=== PATIENT | female | born 1970 | race Caucasian/White ===

== ENCOUNTER 2017-11-29 10:26 | Emergency (ER) | payer OTHER ==
--- NOTE | 2017-11-29 11:04 | ED ---
General Adult HPI - General Chief complaint: Recheck/Abnormal Lab/Rx Stated complaint: Near Syncope Time Seen by Provider: 11/29/17 10:30 Source: patient, EMS, RN notes reviewed Mode of arrival: EMS Limitations: no limitations - History of Present Illness Initial comments: This is a 47-year-old female presents emergency department via EMS for not feeling well. Patient states that she had a sudden onset of overwhelming feeling that she was going to pass out and states that she became shaky, clammy and flushed feeling. Patient states that it resolved and she attempted to drive emergency Department but then she felt she was going to pass out again and called EMS at that time. As EMS picked her up she did complain of some chest heaviness states there is no chest pain. She states her symptoms have resolved. Patient states that she recently was started on Effexor for anxiety. Patient states that she has taken a few doses of it. Patient states she was started on this for her anxiety issues. Patient also states that she has an estradiol patch on. Patient denies any headache or focal weakness. She states that she feels tingly all over currently. He states his symptoms seem to wax and wane. She has no abdominal pain denies any leg pain, upper extremity pain. Patient has no prior cardiac history. She takes omeprazole for GERD. - Related Data Home Medications Medication Instructions Recorded Confirmed Estradiol [Estradiol 0.025 MG 0.025 mg TRANSDERM Q3D 11/29/17 11/29/17 Patch] Meclizine [Antivert] 12.5 mg PO DAILY PRN 11/29/17 11/29/17 Omeprazole 20 mg PO DAILY 11/29/17 11/29/17 Venlafaxine HCl [Effexor] 2 tab PO DAILY 11/29/17 11/29/17 Allergies Allergy/AdvReac Type Severity Reaction Status Date / Time No Known Allergies Allergy Verified 11/29/17 10:42 Review of Systems ROS Statement: Those systems with pertinent positive or pertinent negative responses have been documented in the HPI. ROS Other: All systems not noted in ROS Statement are negative. Past Medical History Past Medical History: GERD/Reflux Additional Past Medical History / Comment(s): vertigo History of Any Multi-Drug Resistant Organisms: None Reported Past Surgical History: Hernia Repair, Hysterectomy Past Psychological History: No Psychological Hx Reported Smoking Status: Current every day smoker Past Alcohol Use History: Occasional Past Drug Use History: None Reported General Exam Limitations: no limitations General appearance: alert, in no apparent distress ENT exam: Present: normal exam, normal oropharynx, mucous membranes moist Neck exam: Present: normal inspection, full ROM. Absent: tenderness, meningismus, lymphadenopathy Respiratory exam: Present: normal lung sounds bilaterally. Absent: respiratory distress, wheezes, rales, rhonchi, stridor Cardiovascular Exam: Present: regular rate, normal rhythm, normal heart sounds. Absent: systolic murmur, diastolic murmur, rubs, gallop, clicks GI/Abdominal exam: Present: soft, normal bowel sounds. Absent: distended, tenderness, guarding, rebound, rigid Neurological exam: Present: alert, oriented X3, CN II-XII intact, reflexes normal. Absent: motor sensory deficit Skin exam: Present: warm, dry, intact, normal color. Absent: rash Course Vital Signs 11/29/17 10:39 Temperature 98.1 F Pulse Rate 75 Respiratory 16 Rate Blood Pressure 117/63 O2 Sat by Pulse 100 Oximetry EKG Findings - EKG Comments: EKG Findings:: EKG performed at 11:02 sinus rhythm with sinus arrhythmia and a prolonged QT with a rate of 72 DC 138 QRS 86 QTC/QTC 452/494 Medical Decision Making - Medical Decision Making 47-year-old female sent in for symptoms of feeling she was passed out. Patient stated she had numbness and tingling diffusely and had flushed feeling. Patient had lab work, EKG and chest x-ray which all are all essentially normal. Patient does have a history anxiety and recently started on Effexor for anxiety. Patient symptoms may be caused by her medication at this time. Patient was slightly anxious earlier and had some chest heaviness or palpitations. Patient states that she's never had any chest pain. Her symptoms are more consistent with anxiety and medication reaction this time. Patient states that she feels improved and will be discharged to follow-up with primary care physician - Lab Data Result diagrams: 11/29/17 10:50 11/29/17 10:50 Lab Results 11/29/17 11/29/17 11/29/17 Range/Units 10:50 10:50 10:50 WBC 9.4 (3.8-10.6) k/uL RBC 4.53 (3.80-5.40) m/uL Hgb 13.4 (11.4-16.0) gm/dL Hct 41.2 (34.0-46.0) % MCV 90.8 (80.0-100.0) fL MCH 29.6 (25.0-35.0) pg MCHC 32.6 (31.0-37.0) g/dL RDW 12.9 (11.5-15.5) % Plt Count 269 (150-450) k/uL Neutrophils % 67 % Lymphocytes % 25 % Monocytes % 5 % Eosinophils % 1 % Basophils % 1 % Neutrophils # 6.3 (1.3-7.7) k/uL Lymphocytes # 2.3 (1.0-4.8) k/uL Monocytes # 0.5 (0-1.0) k/uL Eosinophils # 0.1 (0-0.7) k/uL Basophils # 0.1 (0-0.2) k/uL PT (9.0-12.0) sec INR (<1.2) APTT (22.0-30.0) sec D-Dimer (<0.60) mg/L FEU Sodium 142 (137-145) mmol/L Potassium 4.2 (3.5-5.1) mmol/L Chloride 107 (98-107) mmol/L Carbon Dioxide 25 (22-30) mmol/L Anion Gap 10 mmol/L BUN 15 (7-17) mg/dL Creatinine 0.79 (0.52-1.04) mg/dL Est GFR (CKD-EPI)AfAm >90 (>60 ml/min/1.73 sqM) Est GFR (CKD-EPI)NonAf 90 (>60 ml/min/1.73 sqM) Glucose 101 H (74-99) mg/dL Calcium 9.0 (8.4-10.2) mg/dL Magnesium 1.8 (1.6-2.3) mg/dL Total Bilirubin 0.7 (0.2-1.3) mg/dL AST 20 (14-36) U/L ALT 25 (9-52) U/L Alkaline Phosphatase 54 (38-126) U/L Total Creatine Kinase 80 (30-135) U/L CK-MB (CK-2) 0.3 (0.0-2.4) ng/mL CK-MB (CK-2) Rel Index 0.4 Troponin I <0.012 (0.000-0.034) ng/mL Total Protein 6.2 L (6.3-8.2) g/dL Albumin 3.6 (3.5-5.0) g/dL Lipase 83 (23-300) U/L Urine Color Urine Appearance (Clear) Urine pH (5.0-8.0) Ur Specific [place] (1.001-1.035) Urine Protein (Negative) Urine Glucose (UA) (Negative) Urine Ketones (Negative) Urine Blood (Negative) Urine Nitrite (Negative) Urine Bilirubin (Negative) Urine Urobilinogen (<2.0) mg/dL Ur Leukocyte Esterase (Negative) 11/29/17 11/29/17 Range/Units 10:50 10:50 WBC (3.8-10.6) k/uL RBC (3.80-5.40) m/uL Hgb (11.4-16.0) gm/dL Hct (34.0-46.0) % MCV (80.0-100.0) fL MCH (25.0-35.0) pg MCHC (31.0-37.0) g/dL RDW (11.5-15.5) % Plt Count (150-450) k/uL Neutrophils % % Lymphocytes % % Monocytes % % Eosinophils % % Basophils % % Neutrophils # (1.3-7.7) k/uL Lymphocytes # (1.0-4.8) k/uL Monocytes # (0-1.0) k/uL Eosinophils # (0-0.7) k/uL Basophils # (0-0.2) k/uL PT 10.2 (9.0-12.0) sec INR 1.0 (<1.2) APTT 24.8 (22.0-30.0) sec D-Dimer 0.22 (<0.60) mg/L FEU Sodium (137-145) mmol/L Potassium (3.5-5.1) mmol/L Chloride (98-107) mmol/L Carbon Dioxide (22-30) mmol/L Anion Gap mmol/L BUN (7-17) mg/dL Creatinine (0.52-1.04) mg/dL Est GFR (CKD-EPI)AfAm (>60 ml/min/1.73 sqM) Est GFR (CKD-EPI)NonAf (>60 ml/min/1.73 sqM) Glucose (74-99) mg/dL Calcium (8.4-10.2) mg/dL Magnesium (1.6-2.3) mg/dL Total Bilirubin (0.2-1.3) mg/dL AST (14-36) U/L ALT (9-52) U/L Alkaline Phosphatase (38-126) U/L Total Creatine Kinase (30-135) U/L CK-MB (CK-2) (0.0-2.4) ng/mL CK-MB (CK-2) Rel Index Troponin I (0.000-0.034) ng/mL Total Protein (6.3-8.2) g/dL Albumin (3.5-5.0) g/dL Lipase (23-300) U/L Urine Color Colorless Urine Appearance Clear (Clear) Urine pH 7.0 (5.0-8.0) Ur Specific [place] 1.002 (1.001-1.035) Urine Protein Negative (Negative) Urine Glucose (UA) Negative (Negative) Urine Ketones Negative (Negative) Urine Blood Negative (Negative) Urine Nitrite Negative (Negative) Urine Bilirubin Negative (Negative) Urine Urobilinogen <2.0 (<2.0) mg/dL Ur Leukocyte Esterase Negative (Negative) Disposition Clinical Impression: Intermittent lightheadedness, Medication reaction Disposition: HOME SELF-CARE Condition: Stable Instructions: Lightheadedness (ED) Additional Instructions: Please return to the Emergency Department if symptoms worsen or any other concerns. Is patient prescribed a controlled substance at d/c from ED?: No Referrals: Nonstaff,Physician [Primary Care Provider] - 1-2 days Time of Disposition: 12:52
[2017-11-29 11:12] LABS: Appearance,Urine Clear (Clear); Basophils # (A) 0.1 k/uL (0-0.2); Basophils % (A) 1 %; Bilirubin,Urine Negative (Negative); Blood,Urine Negative (Negative); Color,Urine Colorless; Eosinophils # (A) 0.1 k/uL (0-0.7); Eosinophils % (A) 1 %; Glucose,Urine (UA) Negative (Negative); HCT 41.2 % (34.0-46.0); HGB 13.4 gm/dL (11.4-16.0); Ketones,Urine Negative (Negative); Leukocyte Esterase,Urine Negative (Negative); Lymphocytes # (A) 2.3 k/uL (1.0-4.8); Lymphocytes % (A) 25 %; MCH 29.6 pg (25.0-35.0); MCHC 32.6 g/dL (31.0-37.0); MCV 90.8 fL (80.0-100.0); Mean Platelet Volume 7.3; Monocytes # (A) 0.5 k/uL (0-1.0); Monocytes % (A) 5 %; Neutrophils # (A) 6.3 k/uL (1.3-7.7); Neutrophils % (A) 67 %; Nitrite,Urine Negative (Negative); Platelet Count 269 k/uL (150-450); Protein,Urine Negative (Negative); RBC 4.53 m/uL (3.80-5.40); RDW 12.9 % (11.5-15.5); Specific Gravity,Urine 1.002 (1.001-1.035); Urobilinogen,Urine <2.0 mg/dL (<2.0); WBC 9.4 k/uL (3.8-10.6)
--- NOTE | 2017-11-29 11:20 | XR ---
EXAMINATION TYPE: XR chest 2V DATE OF EXAM: 11/29/2017 HISTORY: Chest Pain. REFERENCE: NONE. FINDINGS: The lungs are overinflated. The lungs are clear. Pleural spaces are clear. The heart is not enlarged. IMPRESSION: PLEASE CORRELATE FOR COPD.
[2017-11-29 11:24] LABS: ALT 25 U/L (9-52); AST 20 U/L (14-36); Albumin 3.6 g/dL (3.5-5.0); Alkaline Phosphatase 54 U/L (38-126); Anion Gap 10 mmol/L; Blood Urea Nitrogen 15 mg/dL (7-17); Carbon Dioxide 25 mmol/L (22-30); Chloride 107 mmol/L (98-107); Glucose 101 mg/dL (74-99); Lipase 83 U/L (23-300); Magnesium 1.8 mg/dL (1.6-2.3); Potassium 4.2 mmol/L (3.5-5.1); Sodium 142 mmol/L (137-145); Total Bilirubin 0.7 mg/dL (0.2-1.3); Total Protein 6.2 g/dL (6.3-8.2)
[2017-11-29 11:26] LABS: D-Dimer 0.22 mg/L FEU (<0.60); Partial Thromboplastin Time 24.8 sec (22.0-30.0); Prothrombin Time 10.2 sec (9.0-12.0)
[2017-11-29 11:33] LABS: Creatine Kinase 80 U/L (30-135)
[2017-11-29 11:46] LABS: Creatine Kinase MB 0.3 ng/mL (0.0-2.4); Troponin I <0.012 ng/mL (0.000-0.034)
[2017-11-29 12:58] VITALS: BP 120/67; PULSE 71; RESP 20; TEMP 97.2
== END 2017-11-29 12:58 | disposition home or self-care (01) ==
LOC: EC 10:26
DX: R42 Dizziness and giddiness (principal); R20.0 Anesthesia of skin; R20.2 Paresthesia of skin; T43.215A Adverse effect of selective serotonin and norepinephrine reuptake inhibitors, initial encounter; K21.9 Gastro-esophageal reflux disease without esophagitis; F41.9 Anxiety disorder, unspecified; F17.200 Nicotine dependence, unspecified, uncomplicated; Z90.710 Acquired absence of both cervix and uterus; Z98.890 Other specified postprocedural states; Z79.899 Other long term (current) drug therapy
CPT/HCPCS: 36415; 71046; 80053; 81003; 82550; 82553; 83690; 83735; 84484; 85025; 85379; 85610; 85730; 93005; 99285

== ENCOUNTER 2017-12-01 09:46 | Emergency (ER) | payer OTHER ==
[2017-12-01 11:01] LABS: Anion Gap 10 mmol/L; Basophils # (A) 0.1 k/uL (0-0.2); Basophils % (A) 1 %; Blood Urea Nitrogen 11 mg/dL (7-17); Calcium 9.2 mg/dL (8.4-10.2); Carbon Dioxide 25 mmol/L (22-30); Chloride 108 mmol/L (98-107); Eosinophils % (A) 0 %; Glucose 88 mg/dL (74-99); HCT 41.3 % (34.0-46.0); HGB 13.8 gm/dL (11.4-16.0); Lymphocytes # (A) 1.3 k/uL (1.0-4.8); Lymphocytes % (A) 14 %; MCHC 33.4 g/dL (31.0-37.0); MCV 89.7 fL (80.0-100.0); Mean Platelet Volume 7.2; Monocytes # (A) 0.4 k/uL (0-1.0); Monocytes % (A) 5 %; Neutrophils # (A) 7.3 k/uL (1.3-7.7); Neutrophils % (A) 80 %; Platelet Count 247 k/uL (150-450); Potassium 4.1 mmol/L (3.5-5.1); RBC 4.61 m/uL (3.80-5.40); RDW 12.8 % (11.5-15.5); Sodium 143 mmol/L (137-145); WBC 9.1 k/uL (3.8-10.6)
--- NOTE | 2017-12-01 11:31 | ED ---
General Adult HPI - General Chief complaint: Recheck/Abnormal Lab/Rx Stated complaint: Dizziness Time Seen by Provider: 12/01/17 09:57 Source: patient Mode of arrival: ambulatory Limitations: no limitations - History of Present Illness Initial comments: This is a 47-year-old female with past medical history of anxiety and GERD who presents today for chief complaint of fatigue. She was recently seen emergency Department on November 29 for similar complaints and possible reaction to new medication to effexor. comprehensive of workup was done at that time, which returned within normal limits. Patient has not taken Effexor since ThursdayNovember 28. This morning she stated she woke up very fatigued and as though her legs and arms were restless. She called her PCP who stated that the pt should not have effexor in her system and it should not be causing her fatigue. Pt did admit to drinking a coffee on an empty stomach. Pt was concerned and presented to the emergency department for fatigue and restless feeling in arms and leg bilaterally. Upon presention pt VS WNL.Patient denies any recent fever, chills, shortness of breath, chest pain, back pain, abdominal pain, nausea or vomiting, numbness or tingling, dysuria or hematuria, constipation or diarrhea, headaches or visual changes, or any other complaints. Physical examination WNL, no evidence of neurological deficits, or cardiopulmary processes. CBC, BMP, EKG and orthostatic BP were obtained which returned within normal limits. Upon re- evaluation of the patient she stated that she was feeling better after receiving a warm blanket. I was discussing diet, exercise habits with the patient and her mother, of which during conversation her mother mentioned that she had issues with fatigue and mentinoed she previously received B12 shots. Pt requested a B12 shot and stated she feels stable/comfortable with discharge. - Related Data Home Medications Medication Instructions Recorded Confirmed Estradiol [Estradiol 0.025 MG 0.025 mg TRANSDERM MOSA 11/29/17 12/01/17 Patch] Omeprazole 20 mg PO DAILY 11/29/17 12/01/17 Previous Rx's Medication Instructions Recorded Multivitamin [Multivitamins Adult 1 each PO DAILY 30 Days #30 tablet 12/01/17 Gummies] Allergies Allergy/AdvReac Type Severity Reaction Status Date / Time No Known Allergies Allergy Verified 12/01/17 10:01 Review of Systems ROS Statement: Those systems with pertinent positive or pertinent negative responses have been documented in the HPI. ROS Other: All systems not noted in ROS Statement are negative. Past Medical History Past Medical History: GERD/Reflux Additional Past Medical History / Comment(s): vertigo History of Any Multi-Drug Resistant Organisms: None Reported Past Surgical History: Hernia Repair, Hysterectomy Past Psychological History: No Psychological Hx Reported Smoking Status: Current every day smoker Past Alcohol Use History: Occasional Past Drug Use History: None Reported General Exam Limitations: no limitations Course Vital Signs 12/01/17 12/01/17 12/01/17 09:50 10:30 11:31 Temperature 98.3 F 98.6 F Pulse Rate 73 60 Pulse Rate [ 64 Sitting] Pulse Rate [ 73 Standing] Pulse Rate [ 59 L Supine] Respiratory 20 18 Rate Blood Pressure 135/80 106/59 Blood Pressure 117/67 [Sitting] Blood Pressure 112/81 [Standing] Blood Pressure 129/67 [Supine] O2 Sat by Pulse 100 99 Oximetry EKG Findings - EKG Comments: EKG Findings:: Sinus rhythm with short MI, 65 bpm. MI-106 ms. QRS- 84 ms. QT/ QTc 444/461 ms. P-R-T axes 72 86 61. Normal EKG-no evidence of delta wave, ST or T wave changes Medical Decision Making - Medical Decision Making This is a 47-year-old female with past medical history of anxiety and GERD who presents today for chief complaint of fatigue. She was recently seen emergency Department on November 29 for similar complaints and possible reaction to new medication to effexor. comprehensive of workup was done at that time, which returned within normal limits. Patient has not taken Effexor since ThursdayNovember 28. This morning she stated she woke up very fatigued and as though her legs and arms were restless. She called her PCP who stated that the pt should not have effexor in her system and it should not be causing her fatigue. Pt did admit to drinking a coffee on an empty stomach. Pt was concerned and presented to the emergency department for fatigue and restless feeling in arms and leg bilaterally. Upon presention pt VS WNL.Patient denies any recent fever, chills, shortness of breath, chest pain, back pain, abdominal pain, nausea or vomiting, numbness or tingling, dysuria or hematuria, constipation or diarrhea, headaches or visual changes, or any other complaints. Physical examination WNL, no evidence of neurological deficits, or cardiopulmary processes. CBC, BMP, EKG and orthostatic BP were obtained which returned within normal limits. Upon re- evaluation of the patient she stated that she was feeling better after receiving a warm blanket. I was discussing diet, exercise habits with the patient and her mother, of which during conversation her mother mentioned that she had issues with fatigue and mentinoed she previously received B12 shots. Pt requested a B12 shot and stated she feels stable/comfortable with discharge.The case was discussed in detail with Dr. Leal who feels comfortable with discharging patient with PCP f/u for B12 IM injection and further evaluation. Plan discussed with Pt who agrees and is happy with this. Pt ws instructed to return to the ER for changing or worsening symptoms. Pt repeat VS stable pt was discharged with rx for multivitamin in stable condition. - Lab Data Result diagrams: 12/01/17 10:36 12/01/17 10:36 Lab Results 12/01/17 12/01/17 Range/Units 10:36 10:36 WBC 9.1 (3.8-10.6) k/uL RBC 4.61 (3.80-5.40) m/uL Hgb 13.8 (11.4-16.0) gm/dL Hct 41.3 (34.0-46.0) % MCV 89.7 (80.0-100.0) fL MCH 30.0 (25.0-35.0) pg MCHC 33.4 (31.0-37.0) g/dL RDW 12.8 (11.5-15.5) % Plt Count 247 (150-450) k/uL Neutrophils % 80 % Lymphocytes % 14 % Monocytes % 5 % Eosinophils % 0 % Basophils % 1 % Neutrophils # 7.3 (1.3-7.7) k/uL Lymphocytes # 1.3 (1.0-4.8) k/uL Monocytes # 0.4 (0-1.0) k/uL Eosinophils # 0.0 (0-0.7) k/uL Basophils # 0.1 (0-0.2) k/uL Sodium 143 (137-145) mmol/L Potassium 4.1 (3.5-5.1) mmol/L Chloride 108 H (98-107) mmol/L Carbon Dioxide 25 (22-30) mmol/L Anion Gap 10 mmol/L BUN 11 (7-17) mg/dL Creatinine 0.84 (0.52-1.04) mg/dL Est GFR (CKD-EPI)AfAm >90 (>60 ml/min/1.73 sqM) Est GFR (CKD-EPI)NonAf 82 (>60 ml/min/1.73 sqM) Glucose 88 (74-99) mg/dL Calcium 9.2 (8.4-10.2) mg/dL Disposition Clinical Impression: Fatigue Disposition: HOME SELF-CARE Condition: Good Instructions: Chronic Fatigue Syndrome (ED), Fatigue (ED) Additional Instructions: Please take multivitamin as discussed. Please follow-up with family doctor in the next 2 days. Please return to emergency room if the symptoms increase or worsen or for any other concerns. Prescriptions: Multivitamin [Multivitamins Adult Gummies] 1 each PO DAILY 30 Days #30 tablet Is patient prescribed a controlled substance at d/c from ED?: No Referrals: Nonstaff,Physician [Primary Care Provider] - 1-2 days Time of Disposition: 11:36
[2017-12-01 11:33] VITALS: BP 106/59; PULSE 60; RESP 18; TEMP 98.6
== END 2017-12-01 11:46 | disposition home or self-care (01) ==
LOC: EC 09:46
DX: R53.83 Other fatigue (principal); R29.898 Other symptoms and signs involving the musculoskeletal system; K21.9 Gastro-esophageal reflux disease without esophagitis; F17.200 Nicotine dependence, unspecified, uncomplicated; Z79.899 Other long term (current) drug therapy
CPT/HCPCS: 36415; 80048; 85025; 93005; 99284

== ENCOUNTER → 2018-03-09 | Outpatient (CLI) | payer OTHER | END | disposition home or self-care (01) | LOC: MNTWWP 08:43 | PROVIDERS: ATTEND Physician Assistant | DX: E16.2 Hypoglycemia, unspecified (principal) | CPT/HCPCS: 97803 ==

== ENCOUNTER 2018-07-04 14:17 | Emergency (ER) | payer BC, OTHER ==
[2018-07-04 14:40] VITALS: TEMP 98.1
[2018-07-04] MEDS ORDERED: diphenhydrAMINE 50 MG/ML 1 ML VIAL IVP STA (15:11)
[2018-07-04] MEDS ORDERED: SODIUM CHLORIDE 0.9% 1,000 ML IV STA (15:11)
[2018-07-04] MEDS ORDERED: MECLIZINE 12.5 MG TAB PO STA ×2 (15:11→17:14)
[2018-07-04] MEDS ORDERED: KETOROLAC 30 MG/ML 1 ML VIAL IVP STA (15:12)
[2018-07-04] MEDS ORDERED: ONDANSETRON 4 MG/2 ML VIAL IVP STA (15:12)
--- NOTE | 2018-07-04 15:13 | ED ---
Dizziness HPI - General Chief Complaint: Dizziness Stated Complaint: VERTIGO Time Seen by Provider: 07/04/18 14:44 Source: patient, EMS, RN notes reviewed, old records reviewed Mode of arrival: EMS Limitations: no limitations - History of Present Illness Initial Comments: 47-year-old female presents return today for exacerbation of vertigo. Patient reports that a history of vertigo, life. Patient states that she normally can manage this with Antivert. Patient states that she was vomiting so much today she could not hold down her Antivert. Patient states that she attempted to come to the hospital and a car but the movement was too much for her. Patient states that she has followed with ENT as in the past. - Related Data Home Medications Medication Instructions Recorded Confirmed Estradiol [Estradiol 0.025 MG 0.025 mg TRANSDERM MOSA 11/29/17 07/04/18 Patch] Omeprazole 20 mg PO DAILY 11/29/17 07/04/18 ALPRAZolam [Xanax] 0.25 mg PO BID PRN 07/04/18 07/04/18 Citalopram Hydrobromide [CeleXA] 20 mg PO DAILY 07/04/18 07/04/18 Meclizine [Antivert] 25 mg PO DAILY PRN 07/04/18 07/04/18 Previous Rx's Medication Instructions Recorded Amoxic-Pot Clav 875-125Mg 1 tab PO Q12HR #20 tablet 07/04/18 [Augmentin 875-125] Meclizine [Antivert] 25 mg PO QID #20 tab 07/04/18 Ondansetron [Zofran] 4 mg PO Q8HR PRN #8 tab 07/04/18 Allergies Allergy/AdvReac Type Severity Reaction Status Date / Time adhesive tape Allergy Itching Verified 07/04/18 15:04 venlafaxine Allergy Unknown Verified 07/04/18 15:04 Review of Systems ROS Statement: Those systems with pertinent positive or pertinent negative responses have been documented in the HPI. ROS Other: All systems not noted in ROS Statement are negative. Past Medical History Past Medical History: GERD/Reflux Additional Past Medical History / Comment(s): vertigo, non-diabetic hypoglycemia History of Any Multi-Drug Resistant Organisms: None Reported Past Surgical History: Hernia Repair, Hysterectomy Past Psychological History: Anxiety Smoking Status: Current every day smoker Past Alcohol Use History: Rare Past Drug Use History: None Reported General Exam - General Exam Comments Initial Comments: Pleasant 39-year-old female. Alert and oriented 3. No significant distress. Limitations: no limitations General appearance: alert, in no apparent distress Head exam: Present: atraumatic, normocephalic, normal inspection Eye exam: Present: normal appearance, PERRL, EOMI, nystagmus (Nystagmus on right -sided gaze). Absent: scleral icterus, conjunctival injection, periorbital swelling ENT exam: Present: normal exam, normal oropharynx. Absent: TM's normal bilaterally ( is erythematous and bulging right TM.) Neck exam: Present: normal inspection. Absent: tenderness, meningismus, lymphadenopathy Respiratory exam: Present: normal lung sounds bilaterally. Absent: respiratory distress, wheezes, rales, rhonchi, stridor Cardiovascular Exam: Present: regular rate, normal rhythm, normal heart sounds. Absent: systolic murmur, diastolic murmur, rubs, gallop, clicks GI/Abdominal exam: Present: soft, normal bowel sounds. Absent: distended, tenderness, guarding, rebound, rigid Extremities exam: Present: normal inspection, full ROM, normal capillary refill. Absent: tenderness, pedal edema, joint swelling, calf tenderness Back exam: Present: normal inspection Neurological exam: Present: alert, oriented X3, CN II-XII intact Psychiatric exam: Present: normal affect, normal mood Skin exam: Present: warm, dry, intact, normal color. Absent: rash Course Vital Signs 07/04/18 07/04/18 07/04/18 14:28 16:00 16:49 Temperature 98.1 F Pulse Rate 60 62 69 Respiratory 16 14 15 Rate Blood Pressure 108/63 98/60 101/59 O2 Sat by Pulse 100 100 100 Oximetry EKG Findings - EKG Comments: EKG Findings:: EKG shows sinus rhythm with short [place]. Other is certainly daily. Ventricular 60 bpm. Pulse 108. QRS duration 90 ms. QRS QT QTc is 472 ms. Medical Decision Making - Medical Decision Making Patient is a 39-year-old female who presents today with nausea vomiting and intractable vertigo. Patient does have some evidence of right-sided horizontal nystagmus. She has initial difficulty turning her head. Patient was given IV fluids and Zofran and Toradol for neck pain, as well as Antivert. She tolerated those well. After Patient was reevaluated and lab work obtained she received fluid she was feeling somewhat better. She states he has some dizziness. She does have some evidence of effusion within the right TM. I discussed using a decongestant medications and with the Patient on antibiotic. Discussed following up with ENT. Discharge and Patient was antibiotic and Antivert prescription. - Lab Data Result diagrams: 07/04/18 15:33 07/04/18 15:33 Lab Results 07/04/18 07/04/18 Range/Units 15:33 15:33 WBC 13.8 H (3.8-10.6) k/uL RBC 4.36 (3.80-5.40) m/uL Hgb 12.8 (11.4-16.0) gm/dL Hct 40.1 (34.0-46.0) % MCV 92.1 (80.0-100.0) fL MCH 29.4 (25.0-35.0) pg MCHC 31.9 (31.0-37.0) g/dL RDW 13.0 (11.5-15.5) % Plt Count 267 (150-450) k/uL Neutrophils % 86 % Lymphocytes % 9 % Monocytes % 3 % Eosinophils % 1 % Basophils % 0 % Neutrophils # 11.9 H (1.3-7.7) k/uL Lymphocytes # 1.2 (1.0-4.8) k/uL Monocytes # 0.5 (0-1.0) k/uL Eosinophils # 0.1 (0-0.7) k/uL Basophils # 0.1 (0-0.2) k/uL Sodium 140 (137-145) mmol/L Potassium 4.3 (3.5-5.1) mmol/L Chloride 112 H (98-107) mmol/L Carbon Dioxide 25 (22-30) mmol/L Anion Gap 3 mmol/L BUN 16 (7-17) mg/dL Creatinine 0.73 (0.52-1.04) mg/dL Est GFR (CKD-EPI)AfAm >90 (>60 ml/min/1.73 sqM) Est GFR (CKD-EPI)NonAf >90 (>60 ml/min/1.73 sqM) Glucose 89 (74-99) mg/dL Calcium 8.6 (8.4-10.2) mg/dL Disposition Clinical Impression: Acute effusion of right ear, Vertigo Disposition: HOME SELF-CARE Condition: Good Instructions (If sedation given, give patient instructions): Vertigo (ED) Additional Instructions: Patient has take medications as prescribed. Follow-up with primary care physician. Return to emergency department if any alarming signs or symptoms occur. Prescriptions: Amoxic-Pot Clav 875-125Mg [Augmentin 875-125] 1 tab PO Q12HR #20 tablet Meclizine [Antivert] 25 mg PO QID #20 tab Ondansetron [Zofran] 4 mg PO Q8HR PRN #8 tab PRN Reason: Nausea And Vomiting Is patient prescribed a controlled substance at d/c from ED?: No Referrals: Romeo Espinoza MD [Primary Care Provider] - 1-2 days Time of Disposition: 17:43
[2018-07-04 16:09] LABS: Basophils # (A) 0.1 k/uL (0-0.2); Basophils % (A) 0 %; Eosinophils # (A) 0.1 k/uL (0-0.7); Eosinophils % (A) 1 %; HCT 40.1 % (34.0-46.0); HGB 12.8 gm/dL (11.4-16.0); Lymphocytes # (A) 1.2 k/uL (1.0-4.8); Lymphocytes % (A) 9 %; MCH 29.4 pg (25.0-35.0); MCHC 31.9 g/dL (31.0-37.0); MCV 92.1 fL (80.0-100.0); Mean Platelet Volume 7.7; Monocytes # (A) 0.5 k/uL (0-1.0); Monocytes % (A) 3 %; Neutrophils # (A) 11.9 k/uL (1.3-7.7); Neutrophils % (A) 86 %; Platelet Count 267 k/uL (150-450); RBC 4.36 m/uL (3.80-5.40); WBC 13.8 k/uL (3.8-10.6)
[2018-07-04 16:15] LABS: Anion Gap 3 mmol/L; Blood Urea Nitrogen 16 mg/dL (7-17); Calcium 8.6 mg/dL (8.4-10.2); Carbon Dioxide 25 mmol/L (22-30); Chloride 112 mmol/L (98-107); Glucose 89 mg/dL (74-99); Potassium 4.3 mmol/L (3.5-5.1); Sodium 140 mmol/L (137-145)
[2018-07-04 16:50] VITALS: RESP 15
[2018-07-04] MEDS ORDERED: METOCLOPRAMIDE 5 MG/ML 2 ML VIAL IVP STA (17:14)
[2018-07-04] MEDS ORDERED: AMOXIC-POT CLAV 875MG STARTER 2 EACH TABLET PO STA (17:55)
[2018-07-04] MEDS ORDERED: ONDANSETRON 4 MG ODT STARTER PACK 2 TAB BTL PO STA (17:55)
[2018-07-04 18:08] VITALS: BP 111/55; PULSE 66
== END 2018-07-04 18:07 | disposition home or self-care (01) ==
LOC: EC 14:17
DX: R42 Dizziness and giddiness (principal); H73.891 Other specified disorders of tympanic membrane, right ear; K21.9 Gastro-esophageal reflux disease without esophagitis; F41.9 Anxiety disorder, unspecified; Z79.3 Long term (current) use of hormonal contraceptives; Z79.899 Other long term (current) drug therapy; Z88.8 Allergy status to other drugs, medicaments and biological substances; Z91.048 Other nonmedicinal substance allergy status
CPT/HCPCS: 36415; 93005; 80048; 85025; 99285; 96374; 96375 ×3; 96361; J1200; J2765; J2405; J1885; S0119

== ENCOUNTER → 2020-03-17 | Outpatient (CLI) | payer BC ==
--- NOTE | 2020-03-17 17:25 | MR ---
EXAMINATION TYPE: MR iac wo/w con DATE OF EXAM: 03/17/2020 COMPARISON: None HISTORY: Vertigo, headaches CONTRAST: Standard multiplanar, multisequence MRI departmental protocol utilizing 7.5 mL intravenous Gadavist g adolinium contrast. Ventricles have normal size. There is no mass effect nor midline shift. There is no sign of intracran ial hemorrhage. Calvarium is intact. There is no evidence of cerebral edema. The diffusion images show no evidence of cortical infarct. Brainstem is intact. The acoustic nerve an d vestibular nerve appear normal. There is no evidence of cerebellopontine angle mass. Internal audit ory canals appear normal. Cerebellum appears normal. There is normal signal pattern of the temporal b ones. There is no evidence of mastoiditis. There is 1.5 cm mucous retention cyst in the right maxilla ry sinus. There is no evidence of orbital mass. Corpus callosum appears normal. Sella turcica is norm al. There is a 5 mm focus of increased signal in the white matter right frontal lobe on the FLAIR and T2 images. IMPRESSION: No evidence of posterior fossa abnormality. Single focus of increased signal in the white matter right frontal lobe of uncertain significance.
== END | disposition home or self-care (01) ==
LOC: RADMRIMAIN 09:28
PROVIDERS: ATTEND Otolaryngology
DX: R42 Dizziness and giddiness (principal)
CPT/HCPCS: 70553; A9585

== ENCOUNTER 2022-05-15 08:45 | Emergency (ER) | payer BC ==
[2022-05-15] MEDS ORDERED: SODIUM CHLORIDE 0.9% 500 ML 500 ML IV STA (09:03)
--- NOTE | 2022-05-15 09:06 | ED ---
General Adult HPI - General Chief complaint: Weakness Stated complaint: Weakness Time Seen by Provider: 05/15/22 08:55 Source: patient, RN notes reviewed Mode of arrival: ambulatory Limitations: no limitations - History of Present Illness Initial comments: Patient is a pleasant 51-year-old female patient emergency department not feeling well. Patient has been sick for over a week now. Patient started on antibiotics and steroids 4 days ago. Patient has had congestion and cough. No fevers. Today driving to see her neurologist, patient felt fatigued and shaky. Patient is also had some mild dyspnea. Symptoms have improved however to continue some. No leg pain or leg swelling. - Related Data Home Medications Medication Instructions Recorded Confirmed Omeprazole 20 mg PO DAILY 11/29/17 05/15/22 Citalopram Hydrobromide [CeleXA] 20 mg PO DAILY 07/04/18 05/15/22 Azithromycin [Zithromax Z Pack] See Taper PO DIRECTED 05/15/22 05/15/22 Galcanezumab-Gnlm [Emgality 120 mg SQ QMONTHLY 05/15/22 05/15/22 Syringe] Meloxicam [Mobic] 15 mg PO DAILY 05/15/22 05/15/22 Propranolol [Inderal] 20 mg PO BID 05/15/22 05/15/22 Vitamin B Complex 1 cap PO DAILY 05/15/22 05/15/22 estradioL [Estrace] 1 mg PO HS 05/15/22 05/15/22 methylPREDNISolone Dose Pack See Taper PO DIRECTED 05/15/22 05/15/22 [Medrol Dose Pack] Allergies Allergy/AdvReac Type Severity Reaction Status Date / Time adhesive tape Allergy Itching Verified 05/15/22 09:52 venlafaxine Allergy Unknown Verified 05/15/22 09:52 yellow dye Allergy Unknown Verified 05/15/22 09:52 Review of Systems ROS Statement: Those systems with pertinent positive or pertinent negative responses have been documented in the HPI. ROS Other: All systems not noted in ROS Statement are negative. Constitutional: Denies: fever Eyes: Denies: eye pain ENT: Reports: congestion. Denies: ear pain Respiratory: Reports: as per HPI, cough Cardiovascular: Denies: chest pain Endocrine: Reports: fatigue Gastrointestinal: Denies: abdominal pain Genitourinary: Denies: dysuria Musculoskeletal: Denies: back pain Skin: Denies: rash Neurological: Denies: headache Past Medical History Past Medical History: GERD/Reflux Additional Past Medical History / Comment(s): vertigo, non-diabetic hypoglycemia History of Any Multi-Drug Resistant Organisms: None Reported Past Surgical History: Hernia Repair, Hysterectomy Past Psychological History: Anxiety Past Alcohol Use History: Rare Past Drug Use History: None Reported General Exam Limitations: no limitations General appearance: alert, in no apparent distress Head exam: Present: normocephalic Eye exam: Present: normal appearance Neck exam: Present: normal inspection Respiratory exam: Present: normal lung sounds bilaterally Cardiovascular Exam: Present: regular rate, normal rhythm GI/Abdominal exam: Present: soft. Absent: tenderness Extremities exam: Present: normal inspection. Absent: pedal edema, calf tenderness Neurological exam: Present: alert. Absent: motor sensory deficit Psychiatric exam: Present: normal affect, normal mood Skin exam: Present: normal color Course Vital Signs 05/15/22 05/15/22 08:46 10:39 Temperature 97.2 F L Pulse Rate 62 55 L Respiratory 16 18 Rate Blood Pressure 148/77 141/75 O2 Sat by Pulse 99 Oximetry EKG Findings - EKG Results: EKG: interpreted by ERMD, sinus rhythm, normal axis, normal QRS, normal ST/T EKG shows: bradycardia Medical Decision Making - Medical Decision Making Patient reevaluated and feeling better. Patient resting complain bed. Patient and family updated on results and need for follow-up. Patient questions if steroids could be causing her shakiness. - Lab Data Result diagrams: 05/15/22 09:39 05/15/22 09:39 Lab Results 05/15/22 05/15/22 05/15/22 Range/Units 09:39 09:39 09:39 WBC 14.9 H (3.8-10.6) k/uL RBC 4.95 (3.80-5.40) m/uL Hgb 14.4 (11.4-16.0) gm/dL Hct 44.8 (34.0-46.0) % MCV 90.5 (80.0-100.0) fL MCH 29.1 (25.0-35.0) pg MCHC 32.1 (31.0-37.0) g/dL RDW 13.1 (11.5-15.5) % Plt Count 265 (150-450) k/uL MPV 8.9 Neutrophils % 70 % Lymphocytes % 22 % Monocytes % 5 % Eosinophils % 0 % Basophils % 1 % Neutrophils # 10.5 H (1.3-7.7) k/uL Lymphocytes # 3.3 (1.0-4.8) k/uL Monocytes # 0.8 (0-1.0) k/uL Eosinophils # 0.0 (0-0.7) k/uL Basophils # 0.1 (0-0.2) k/uL PT 9.8 (9.0-12.0) sec INR 0.9 (<1.2) APTT 24.3 (22.0-30.0) sec D-Dimer 0.28 (<0.60) mg/L FEU Sodium 139 (137-145) mmol/L Potassium 4.5 (3.5-5.1) mmol/L Chloride 107 (98-107) mmol/L Carbon Dioxide 25 (22-30) mmol/L Anion Gap 7 mmol/L BUN 22 H (7-17) mg/dL Creatinine 0.94 (0.52-1.04) mg/dL Est GFR (CKD-EPI)AfAm 81 (>60 ml/min/1.73 sqM) Est GFR (CKD-EPI)NonAf 70 (>60 ml/min/1.73 sqM) Glucose 89 (74-99) mg/dL Plasma Lactic Acid Oneal (0.7-2.0) mmol/L Calcium 9.4 (8.4-10.2) mg/dL Magnesium 2.0 (1.6-2.3) mg/dL Total Bilirubin 0.5 (0.2-1.3) mg/dL AST 23 (14-36) U/L ALT 24 (4-34) U/L Alkaline Phosphatase 72 (38-126) U/L Troponin I (0.000-0.034) ng/mL NT-Pro-B Natriuret Pep pg/mL Total Protein 7.3 (6.3-8.2) g/dL Albumin 4.3 (3.5-5.0) g/dL Influenza Type A (PCR) (Not Detectd) Influenza Type B (PCR) (Not Detectd) RSV (PCR) (Not Detectd) SARS-CoV-2 (PCR) (Not Detectd) 05/15/22 05/15/22 05/15/22 Range/Units 09:39 09:39 09:39 WBC (3.8-10.6) k/uL RBC (3.80-5.40) m/uL Hgb (11.4-16.0) gm/dL Hct (34.0-46.0) % MCV (80.0-100.0) fL MCH (25.0-35.0) pg MCHC (31.0-37.0) g/dL RDW (11.5-15.5) % Plt Count (150-450) k/uL MPV Neutrophils % % Lymphocytes % % Monocytes % % Eosinophils % % Basophils % % Neutrophils # (1.3-7.7) k/uL Lymphocytes # (1.0-4.8) k/uL Monocytes # (0-1.0) k/uL Eosinophils # (0-0.7) k/uL Basophils # (0-0.2) k/uL PT (9.0-12.0) sec INR (<1.2) APTT (22.0-30.0) sec D-Dimer (<0.60) mg/L FEU Sodium (137-145) mmol/L Potassium (3.5-5.1) mmol/L Chloride (98-107) mmol/L Carbon Dioxide (22-30) mmol/L Anion Gap mmol/L BUN (7-17) mg/dL Creatinine (0.52-1.04) mg/dL Est GFR (CKD-EPI)AfAm (>60 ml/min/1.73 sqM) Est GFR (CKD-EPI)NonAf (>60 ml/min/1.73 sqM) Glucose (74-99) mg/dL Plasma Lactic Acid Oneal 1.2 (0.7-2.0) mmol/L Calcium (8.4-10.2) mg/dL Magnesium (1.6-2.3) mg/dL Total Bilirubin (0.2-1.3) mg/dL AST (14-36) U/L ALT (4-34) U/L Alkaline Phosphatase (38-126) U/L Troponin I <0.012 (0.000-0.034) ng/mL NT-Pro-B Natriuret Pep 366 pg/mL Total Protein (6.3-8.2) g/dL Albumin (3.5-5.0) g/dL Influenza Type A (PCR) (Not Detectd) Influenza Type B (PCR) (Not Detectd) RSV (PCR) (Not Detectd) SARS-CoV-2 (PCR) (Not Detectd) 05/15/22 Range/Units 09:39 WBC (3.8-10.6) k/uL RBC (3.80-5.40) m/uL Hgb (11.4-16.0) gm/dL Hct (34.0-46.0) % MCV (80.0-100.0) fL MCH (25.0-35.0) pg MCHC (31.0-37.0) g/dL RDW (11.5-15.5) % Plt Count (150-450) k/uL MPV Neutrophils % % Lymphocytes % % Monocytes % % Eosinophils % % Basophils % % Neutrophils # (1.3-7.7) k/uL Lymphocytes # (1.0-4.8) k/uL Monocytes # (0-1.0) k/uL Eosinophils # (0-0.7) k/uL Basophils # (0-0.2) k/uL PT (9.0-12.0) sec INR (<1.2) APTT (22.0-30.0) sec D-Dimer (<0.60) mg/L FEU Sodium (137-145) mmol/L Potassium (3.5-5.1) mmol/L Chloride (98-107) mmol/L Carbon Dioxide (22-30) mmol/L Anion Gap mmol/L BUN (7-17) mg/dL Creatinine (0.52-1.04) mg/dL Est GFR (CKD-EPI)AfAm (>60 ml/min/1.73 sqM) Est GFR (CKD-EPI)NonAf (>60 ml/min/1.73 sqM) Glucose (74-99) mg/dL Plasma Lactic Acid Oneal (0.7-2.0) mmol/L Calcium (8.4-10.2) mg/dL Magnesium (1.6-2.3) mg/dL Total Bilirubin (0.2-1.3) mg/dL AST (14-36) U/L ALT (4-34) U/L Alkaline Phosphatase (38-126) U/L Troponin I (0.000-0.034) ng/mL NT-Pro-B Natriuret Pep pg/mL Total Protein (6.3-8.2) g/dL Albumin (3.5-5.0) g/dL Influenza Type A (PCR) Not Detected (Not Detectd) Influenza Type B (PCR) Not Detected (Not Detectd) RSV (PCR) Not Detected (Not Detectd) SARS-CoV-2 (PCR) Not Detected (Not Detectd) - Radiology Data Interpreted by me: Chest x-ray shows some hyperinflation, no acute process otherwise. Disposition Clinical Impression: Dyspnea, Fatigue Disposition: HOME SELF-CARE Condition: Stable Instructions (If sedation given, give patient instructions): Dyspnea (ED), Fatigue (ED) Additional Instructions: Please do follow-up with primary care physician in the next day or 2 for recheck. Return for difficulty breathing, chest pain, fevers, worsening or changing symptoms or other concerns. Is patient prescribed a controlled substance at d/c from ED?: No Referrals: Alden Nguyen DO [Primary Care Provider] - 1-2 days Time of Disposition: 11:36
--- NOTE | 2022-05-15 09:34 | XR ---
EXAMINATION TYPE: XR chest 2V DATE OF EXAM: 05/15/2022 COMPARISON: 11/30/2019 HISTORY: 51-year-old female shortness of breath TECHNIQUE: PA and lateral views FINDINGS: Heart normal size. Aorta and pulmonary vasculature within normal limits. There is mild hyperinflation but otherwise without consolidation or pleural effusion. IMPRESSION: Hyperinflation may relate to depth of inspiration or underlying emphysema. Otherwise, no acute proces s seen.
[2022-05-15 10:00] LABS: Basophils # (A) 0.1 k/uL (0-0.2); Basophils % (A) 1 %; Eosinophils % (A) 0 %; HCT 44.8 % (34.0-46.0); HGB 14.4 gm/dL (11.4-16.0); Lymphocytes # (A) 3.3 k/uL (1.0-4.8); Lymphocytes % (A) 22 %; MCH 29.1 pg (25.0-35.0); MCHC 32.1 g/dL (31.0-37.0); MCV 90.5 fL (80.0-100.0); Mean Platelet Volume 8.9; Monocytes # (A) 0.8 k/uL (0-1.0); Monocytes % (A) 5 %; Neutrophils # (A) 10.5 k/uL (1.3-7.7); Neutrophils % (A) 70 %; Platelet Count 265 k/uL (150-450); RBC 4.95 m/uL (3.80-5.40); RDW 13.1 % (11.5-15.5); WBC 14.9 k/uL (3.8-10.6)
[2022-05-15 10:08] LABS: Albumin 4.3 g/dL (3.5-5.0); Calcium 9.4 mg/dL (8.4-10.2); Potassium 4.5 mmol/L (3.5-5.1); Total Bilirubin 0.5 mg/dL (0.2-1.3); Total Protein 7.3 g/dL (6.3-8.2)
[2022-05-15 10:19] LABS: INR 0.9 (<1.2); Partial Thromboplastin Time 24.3 sec (22.0-30.0); Prothrombin Time 9.8 sec (9.0-12.0)
[2022-05-15 11:48] VITALS: BP 137/76; PULSE 52; RESP 19; TEMP 97.5
== END 2022-05-15 11:48 | disposition home or self-care (01) ==
LOC: EC 08:45
DX: R06.00 Dyspnea, unspecified (principal); R53.83 Other fatigue; K21.9 Gastro-esophageal reflux disease without esophagitis; F41.9 Anxiety disorder, unspecified; Z88.8 Allergy status to other drugs, medicaments and biological substances; Z79.899 Other long term (current) drug therapy; Z20.822 Contact with and (suspected) exposure to COVID-19
CPT/HCPCS: 36415; 71046; 80053; 83605; 83735; 83880; 84484; 85025; 85379; 85610; 85730; 87636; 93005; 96360; 99285